=== PATIENT | male | born 1970 | race Caucasian/White ===

== ENCOUNTER 2024-10-09 06:42 | Day surgery (SDC) | payer OTHER, SELFPAY ==
[2024-10-01 13:20] VITALS: BMI 24.1
[2024-10-01 13:46] LABS: Hematocrit 46.9 % (39.0-52.0); Hemoglobin 16.3 g/dL (13.0-18.0); Mean Corp Hgb Conc. 34.8 g/dL (33.0-37.0); Mean Corpuscular Hgb 29.7 pg (27.0-31.0); Mean Corpuscular Volume 85.4 fL (80.0-94.0); Mean Platelet Volume 9.6 fL (7.4-10.4); Platelet Count 196 10^3/uL (130-400); Red Blood Cell Count 5.49 10^6/uL (4.70-6.10); Red Cell Dist. Width 12.7 % (11.5-14.5); White Blood Cell Count 5.2 10^3/uL (4.8-10.8)
[2024-10-01 14:03] LABS: ALT (SGPT) 34 U/L (0-50); AST (SGOT) 27 U/L (17-59); Albumin 4.8 g/dl (3.5-5.0); Alkaline Phosphatase 68 U/L (38-126); Blood Urea Nitrogen 18 mg/dl (9-20); Calcium 9.5 mg/dl (8.4-10.2); Carbon Dioxide 25 mmol/L (22-30); Chloride 104 mmol/L (98-107); Estimated Creatinine Clearance 98 ml/min; Glucose 101 mg/dl (70-99); Potassium 4.2 mmol/L (3.5-5.1); Sodium 141 mmol/L (135-145); Total Bilirubin 0.7 mg/dl (0.2-1.3); Total Protein 7.8 g/dl (6.3-8.2); eGFR > 60.00
[2024-10-09] VITALS (9 sets, daily range): BP systolic 125–154; BP diastolic 81–111; BMI 24.1
[2024-10-09] MEDS: TYLENOL 1000 MG PO (09:07)
--- NOTE | 2024-10-09 10:07 | HP.FOC2 ---
Focused History & Physical
Chief Complaint
HPI:
Chief Complaint: Upper abdominal pain, nausea, bloating and distention
HPI / Indication for Planned Procedure: Patient is a 54-year-old male seen in outpatient surgical evaluation due to intermittent episodes of nausea, upper abdominal bloating discomfort associated with wings, greasy food and fatty food intake.
Ultrasound imaging identified multiple gallstones. He presents today for cholecystectomy.
Relevant Past Medical History: Hypertension
Relevant Social History: Negative
Relevant Family History: Negative
Relevant Past Surgical History: Negative
Review of Systems
Review of Pertinent Systems: All Systems Negative
Medication
See Medication form for detailed medications: Yes
Medication List (including Herbals & OTC):
No Meds [No Current Medications] 10/02/24
Medications Reviewed: Yes
Allergies and Reactions
Patient has Allergies: No
Noted Allergies and Reactions:
Allergy/AdvReac Type Severity Reaction Status Date / Time
No Known Allergies Allergy Verified 10/09/24 08:42
Pertinent Physical Exam
All Other Systems: Negative
Head/Neck: Normal
Lungs: Normal
Heart: Normal
Abdomen: Normal
Extremities: Normal
Neurological: Normal
Diagnosis / Assessment
54-year-old male with symptomatic cholelithiasis presenting for cholecystectomy
Plan / Procedure
Laparoscopic cholecystectomy
Anesthesia/Sedation to be done by Anesthesia Provider: Yes
--- NOTE | 2024-10-09 10:09 | W.SUR.PREOP ---
Pre-Operative Surgical Note
-
I have examined this patient prior to the performance of the scheduled procedure.
The patient's condition is unchanged from the time of the current History and
Physical and the patient is able to undergo the scheduled procedure.
--- NOTE | 2024-10-09 12:14 | W.IMMPOSTOP ---
Addendum entered and electronically signed by Gary New MD 10/09/24 19:00:
#[id number]
Original Note:
Surgical Immed Post Op Note
-
Primary Surgeon: Virgen
Assisting Surgeon: Chandni Chong PA-C
Pre-op Diagnosis: Chronic calculus cholecystitis
Post-op Diagnosis: Chronic calculus cholecystitis
Procedure Performed: Laparoscopic cholecystectomy with intraoperative cholangiogram
Anesthesia Type: GETA +0.25% Marcaine
Specimen / Cultures: Gallbladder/none
Estimated Blood Loss: 8 mL
Complications: None immediate
Operative Findings: Large gallbladder filled with stones. Largest stone about 3 cm or larger. Intraoperative cholangiogram normal.
The assistance of Chandni Chong PA-C was required due to the complexity of the procedure. During the procedure Chandni Chong PA-C assisted with managing the laparoscope, gallbladder retraction, and closure of the incision sites with myself.
== END 2024-10-09 14:39 | disposition home or self-care (01) ==
LOC: SDS 06:42
PROVIDERS: ATTENDING PHYSICIAN Surgery; FAMILY PHYSICIAN Family Medicine
DX: K80.10 Calculus of gallbladder with chronic cholecystitis without obstruction (principal); K82.8 Other specified diseases of gallbladder
CPT/HCPCS: 47563; 88304; 36415; 74300; 76000; 80053; 85027; 93005